=== PATIENT | male | born 1950 | race Caucasian/White ===

== ENCOUNTER 2019-06-14 16:24 | Emergency (ER) | payer MEDICARE ==
[~2019-06-14] VITALS: Ht 170.1 cm; Wt 43.1 kg
--- NOTE | ~2019-06-14 | EKG ---
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
--- NOTE | ~2019-06-14 | EKG ---
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
--- NOTE | ~2019-06-14 | EKG ---
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
[2019-06-14 16:54] LABS: BASO % 0.4 % (0.0-1.0); EOS # 0.2 10*3/uL (0.0-0.4); EOS % 4.5 % (1.0-4.0); HEMATOCRIT 30.1 % (42.0-52.0); HEMOGLOBIN 9.9 g/dl (14.0-18.0); LYMPH % 18.2 % (27.0-41.0); MEAN CORPUSCULAR HGB 32.9 pg (27.0-31.0); MEAN CORPUSCULAR HGB CONC 32.9 g/dl (33.0-37.0); MEAN PLATELET VOLUME 8.8 fl (9.6-12.3); MONO # 0.5 10*3/uL (0.1-1.0); MONO % 9.3 % (3.0-9.0); NEUT # 3.6 10*3/uL (2.3-7.9); NEUT % 67.4 % (47.0-73.0); PLATELET COUNT AUTOMATED 395 10*3/uL (130-400); RED BLOOD COUNT 3.01 10*6/uL (4.50-5.90); RED CELL DISTRI WIDTH 16.4 % (0-14.5); WHITE BLOOD COUNT 5.4 10*3/uL (4.8-10.8)
[2019-06-14 16:58] VITALS: BP 102/51
[2019-06-14 17:06] LABS: ACT PARTIAL THROMBO TIME 33.5 SECONDS (20.0-32.1); INTERNATIONAL NORM RATIO 1.2 (2.0-3.5)
--- NOTE | 2019-06-14 17:08 | NUR ---
PATIENT HAS WOUNDS NOTED TO LOWER BACK LEFT LOWER ARM AND R UPPER ARM. DENIES ANY OTHERS. PHOTOS HAVE BEEN TAKEN AND CAMERA IN BIN.
[2019-06-14 17:17] LABS: ALBUMIN 2.5 gm/dl (3.1-4.5); ALKALINE PHOSPHATASE 78 U/L (45-117); BUN 12 mg/dl (7-24); CHLORIDE 103 mmol/L (98-107); CREATININE 0.48 mg/dL (0.70-1.30); POTASSIUM 3.7 mmol/L (3.5-5.1); SGOT/AST 14 IU/L (3-35); SGPT/ALT 19 U/L (12-78); SODIUM 136 mmol/L (136-145); TOTAL PROTEIN 5.5 gm/dL (6.4-8.2)
[2019-06-14 17:26] LABS: TROPONIN I < 0.015 ng/ml (<0.045)
[2019-06-14 17:46] VITALS: BP 90/48
[2019-06-14 18:58] VITALS: BP 84/62
--- NOTE | 2019-06-14 18:58 | NUR ---
PATIENT BP IS 84/62 MANUALLY. VERBL ORDER TO OPEN FLUIDS WIDE AT THIS TIME.
[2019-06-14 19:59] VITALS: BP 92/56
--- NOTE | 2019-06-14 20:45 | NUR ---
ASSITED WITH CHEST TUBE PLACEMENT BUY DR. HUFF. 24 GAUGE RIGHT MID AXILARY. PATIENT TOLERATED PROCEDURE WELL.
[2019-06-14 21:45] VITALS: BP 123/67
[2019-06-14 22:00] VITALS: BP 149/73
--- NOTE | 2019-06-14 22:21 | NUR ---
Transfer Out, from the Emergency Department - Stable This patient, MONICA GRAHAM, João, 52, [id number], [id number], was examined by the Emergency Department physician, EVAN Gabriel DO and efforts were made to stabilize the patient. The patient's condition is stable. The reason for transfer is need higher level of care . The Emergency physician has made the decision to transfer the patient out. Refer to the ED physician's dictation for the family/back-up physician notified. The attending physician has spoken to the accepting physician at the receiving facility, DR. VERAS. Refer to the ED physician's dictation. The receiving facility has space and qualified personnel to care for the patient, and has agreed to accept the patient. Proper equipment and trained personnel have been arranged. The mode of transport is ground. The agency is [facility]. The Emergency physician has spoken to the transport staff re: patient's condition and needs during transport. Copies of the medical record have been forwarded to the receiving facility, including: - Emergency Department record: - name, address, hospital number, age, next of kin - presenting problem - history of injury, past medical history - treatment, medications & route, fluid type & volume - lab and xray findings, films - physical findings - vitals signs -- prehospital, emergency, pre-transfer - preliminary diagnosis - status/condition - emergency medical services record - consent for transfer - authorization for record release - name of any involed physicians -- responsive or not - name and address of referring physician - name of contact physician at receiving facility - name of accepting physician at receiving facility Nursing report has been given to BETTIE FERGUSON. Valuables include BAG OF BELONGING. and were given to EMS. NICOL KAPADIA
== END 2019-06-14 22:19 | disposition short-term general hospital (02) ==
LOC: ED 16:24 → EDHOLD 19:01 → ED 19:01 → EDHOLD 19:50 → 4E 19:50 → ED 22:19
PROVIDERS: Emergency Medicine
DX: J93.9 Pneumothorax, unspecified (principal); I95.9 Hypotension, unspecified; R53.1 Weakness; R79.1 Abnormal coagulation profile; Z87.19 Personal history of other diseases of the digestive system